=== PATIENT | female | born 1955 | race Caucasian/White ===

== ENCOUNTER 2021-07-19 10:53 | Outpatient (CLI) | payer MEDICARE ==
[2021-07-19 18:53] LABS: SARS-CoV-2 PCR by NAA Not Detected (NotDetected)
== END 2021-07-19 10:54 | disposition home or self-care (01) ==
LOC: CSHLAB 10:53
PROVIDERS: ATTEND Internal Medicine Gastroenterology
DX: Z20.822 Contact with and (suspected) exposure to COVID-19 (principal); K21.9 Gastro-esophageal reflux disease without esophagitis; K63.5 Polyp of colon
CPT/HCPCS: U0003; U0005

== ENCOUNTER 2021-07-24 07:39 | Day surgery (SDC) | payer MEDICARE ==
[2021-07-20 15:37] VITALS: BMI 31.8
[2021-07-24] MEDS ORDERED: Lidocaine 1% MPF 2 ML VIAL ONE (07:44)
[2021-07-24] MEDS ORDERED: PROPOFOL 40 ML ONE (08:17)
[2021-07-24] MEDS ORDERED: Lidocaine 2% MPF 10 ML AMP (For Epidural Use) ONE (09:17)
[2021-07-24] MEDS ORDERED: PROPOFOL 20 ML ONE (09:45)
== END 2021-07-24 10:35 | disposition home or self-care (01) ==
LOC: CSHSDC 07:39
PROVIDERS: ATTEND Internal Medicine Gastroenterology
PROC: 0DJD8ZZ Inspection of Lower Intestinal Tract, Via Natural or Artificial Opening Endoscopic (ICD-10-PCS; principal; 2021-07-24)
DX: Z12.11 Encounter for screening for malignant neoplasm of colon (principal); R13.10 Dysphagia, unspecified; K21.9 Gastro-esophageal reflux disease without esophagitis; K62.89 Other specified diseases of anus and rectum; K64.9 Unspecified hemorrhoids; Z86.010 Personal history of colon polyps; I10 Essential (primary) hypertension; E03.9 Hypothyroidism, unspecified; F41.9 Anxiety disorder, unspecified; F32.9 Major depressive disorder, single episode, unspecified; Z98.84 Bariatric surgery status
CPT/HCPCS: 43248; G0105; J2704

== ENCOUNTER 2023-07-01 11:25 | Day surgery (SDC) | payer MEDICARE ==
[2023-06-28 10:07] VITALS: BMI 31.4
[2023-07-01] MEDS ORDERED: PROPOFOL 20 ML ONE ×2 (12:24→12:31)
== END 2023-07-01 13:21 | disposition home or self-care (01) ==
LOC: CSHSDC 11:25
PROVIDERS: ATTEND Internal Medicine Gastroenterology
PROC: 0D758ZZ Dilation of Esophagus, Via Natural or Artificial Opening Endoscopic (ICD-10-PCS; principal; 2023-07-01)
DX: K21.9 Gastro-esophageal reflux disease without esophagitis (principal); I10 Essential (primary) hypertension; E03.9 Hypothyroidism, unspecified; J45.909 Unspecified asthma, uncomplicated; Z86.010 Personal history of colon polyps; Z98.84 Bariatric surgery status; Z91.040 Latex allergy status; Z79.899 Other long term (current) drug therapy
CPT/HCPCS: J2704